=== PATIENT | female | born 1970 | race Caucasian/White ===

== ENCOUNTER → 2017-05-23 | Outpatient (CLI) | payer BC, OTHER ==
[~2017-05-23] MED LIST: ESOM40CA PO; LOVA20TA2 PO; MULT-658 PO; OMEG1CAP30 PO
[2017-05-23 09:19] LABS: MICROSCOPIC NOT IND
[2017-05-23 09:26] LABS: CULTURE INDICATED? NO
[2017-05-23 09:31] LABS: ANION GAP 6 mmol/L (5-15); BASOPHILS # (AUTO) 0.03 x10^3/uL (0-0.1); BASOPHILS % (AUTO) 1 % (0-1); CHLORIDE 105 mmol/L (98-107); EOSINOPHILS % (AUTO) 2 % (1-7); LYMPHOCYTES # (AUTO) 1.19 x10^3/uL (1-3.4); LYMPHOCYTES % (AUTO) 24 % (22-44); MD NO; MEAN CORPUSCULAR HEMOGLOBIN 30.5 pg (27.0-34.8); MEAN CORPUSCULAR HGB CONC 34.7 g/dL (32.4-35.8); MEAN PLATELET VOLUME 7.9 fL (7.4-10.4); MONOCYTES # (AUTO) 0.34 x10^3/uL (0.2-0.8); MONOCYTES % (AUTO) 7 % (2-9); NEUTROPHILS # (AUTO) 3.37 x10^3/uL (1.8-6.8); NEUTROPHILS % (AUTO) 67 % (42-75); PLATELET COUNT 198 x10^3/uL (130-400); RED BLOOD COUNT 4.98 x10^6/uL (3.82-5.3)
[2017-05-23 09:36] LABS: CREATININE 0.93 mg/dL (0.55-1.02)
== END | disposition home or self-care (01) ==
LOC: STAR 08:28
PROVIDERS: ATTEND Obstetrics & Gynecology
DX: Z01.818 Encounter for other preprocedural examination (principal); D25.9 Leiomyoma of uterus, unspecified
CPT/HCPCS: 36415; 80048; 81003; 84702; 85025

== ENCOUNTER 2017-05-29 05:40 | Day surgery (SDC) | payer BC, OTHER ==
[2017-05-23 08:45] VITALS: BP 124/83
[~2017-05-29] VITALS: Ht 167.6 cm; Wt 71.3 kg
[2017-05-29] MEDS ORDERED: ACETAMINOPHEN 500 MG TABLET ONE (06:15)
[2017-05-29] MEDS ORDERED: LIDOCAINE 1%, 2ML ONE (06:15)
[2017-05-29] MEDS ORDERED: GABAPENTIN 300 MG CAPSULE ONE (06:15)
[2017-05-29] MEDS ORDERED: LACTATED RINGERS 1,000 ML IV SCH (06:25)
[2017-05-29] MEDS ORDERED: ACETAMINOPHEN 500 MG TABLET PO ONE (06:30)
[2017-05-29] MEDS ORDERED: GABAPENTIN 300 MG CAPSULE PO SCH (06:30)
[2017-05-29] MEDS ORDERED: LIDOCAINE 1%, 2ML SQ PRN (06:30)
[2017-05-29] MEDS ORDERED: KETAMINE 10 MG/ML, 20ML ONE (07:06)
[2017-05-29] MEDS ORDERED: MIDAZOLAM 1 MG/ML, 2ML ONE (07:07)
[2017-05-29] MEDS ORDERED: LIDOCAINE GEL 2%, 5ML ONE (07:07)
[2017-05-29] MEDS ORDERED: FENTANYL PF 250 MCG/5ML ONE (07:07)
[2017-05-29] MEDS ORDERED: INDIGO CARMINE 0.8%, 5ML ONE (07:15)
[2017-05-29] MEDS ORDERED: EPINEPHRINE 1 MG/ML, 1ML ONE (07:16)
[2017-05-29] MEDS ORDERED: FLUORESCEIN SODIUM 500 MG/5 ML ONE (07:16)
[2017-05-29] MEDS ORDERED: SCOPOLAMINE PATCH, 1.5MG PATCH.TD72 TD ONE (07:18)
[2017-05-29] MEDS ORDERED: OXYcodone 5 MG/5 ML ORAL.SOL UDC PO PRN (08:00)
[2017-05-29] MEDS: BUPIVACAINE/PF 0.25% ONE ×2 (08:00→08:01)
[2017-05-29] MEDS ORDERED: HYDROmorphone 1 MG/ML, 1ML IV PRN (08:00)
[2017-05-29] MEDS ORDERED: MIDAZOLAM 1 MG/ML, 2ML IV PRN (08:00)
[2017-05-29] MEDS ORDERED: LABETALOL 5MG/ML, 20ML IV PRN (08:00)
[2017-05-29] MEDS ORDERED: MEPERIDINE/PF 25MG/0.5ML IVPush PRN (08:00)
[2017-05-29] MEDS ORDERED: ALBUTEROL SULFATE 2.5 MG/3 ML NPPB PRN (08:00)
[2017-05-29] MEDS ORDERED: hydrALAzine 20 MG/ML, 1ML IV PRN (08:00)
[2017-05-29] MEDS ORDERED: PROMETHAZINE 25 MG/ML, 1ML IV PRN (08:00)
[2017-05-29] MEDS ORDERED: ONDANSETRON 2MG/ML, 2ML IVPush PRN (08:00)
[2017-05-29] MEDS ORDERED: SUCCINYLCHOLINE 20 MG/ML, 10ML ONE (09:17)
[2017-05-29] MEDS ORDERED: ROCURONIUM 10 MG/ML,10ML ONE (09:17)
[2017-05-29] MEDS ORDERED: PROPOFOL 10 MG/ML, 20ML ONE (09:17)
[2017-05-29] MEDS ORDERED: DEXAMETHASONE 4 MG/ML, 1ML ONE (09:18)
[2017-05-29] MEDS ORDERED: ONDANSETRON 2MG/ML, 2ML ONE ×2 (09:18→10:55)
[2017-05-29] MEDS ORDERED: FENTANYL PF 100 MCG/2ML ONE (10:02)
[2017-05-29] MEDS ORDERED: OXYcodone 5 MG/5 ML ORAL.SOL UDC ONE (10:02)
[2017-05-29] MEDS: FENTANYL PF 100 MCG/2ML IV PRN ×2 (10:08→10:28)
[2017-05-29] MEDS ORDERED: OXYcodone/APAP 5/325MG TABLET ONE (14:23)
[2017-05-29] MEDS: OXYcodone/APAP 5/325MG TABLET PO PRN ×2 (14:29→18:25)
[2017-05-29] MEDS ORDERED: CEFAZOLIN 1,000 MG ONE (16:37)
[2017-05-29] MEDS ORDERED: GLYCOPYRROLATE 0.2MG/1ML, 5ML ONE (16:37)
[2017-05-29] MEDS ORDERED: NEOSTIGMINE 1 MG/ML, 10ML ONE (16:37)
== END 2017-05-29 18:40 | disposition home or self-care (01) ==
LOC: OUT 05:40
PROVIDERS: ATTEND Obstetrics & Gynecology
DX: D25.9 Leiomyoma of uterus, unspecified (principal); N83.8 Other noninflammatory disorders of ovary, fallopian tube and broad ligament; N92.0 Excessive and frequent menstruation with regular cycle; E78.5 Hyperlipidemia, unspecified; K21.9 Gastro-esophageal reflux disease without esophagitis; Z98.890 Other specified postprocedural states
CPT/HCPCS: 58552; 81025; 88307; J0171; J0330; J0690; J1100; J2250; J2405; J2704; J2710; J3010; J3490; J7120

== ENCOUNTER → 2017-07-09 | Outpatient (CLI) | payer OTHER | END | disposition home or self-care (01) | LOC: CFH 08:49 | PROVIDERS: ATTEND Obstetrics & Gynecology | DX: Z12.31 Encounter for screening mammogram for malignant neoplasm of breast (principal) | CPT/HCPCS: 77063; 77067 ==

== ENCOUNTER → 2017-07-09 | Outpatient (CLI) | payer OTHER ==
[2017-07-09 08:32] LABS: BASOPHILS # (AUTO) 0.01 x10^3/uL (0-0.1); BASOPHILS % (AUTO) 0 % (0-1); EOSINOPHILS % (AUTO) 2 % (1-7); LYMPHOCYTES # (AUTO) 1.24 x10^3/uL (1-3.4); LYMPHOCYTES % (AUTO) 29 % (22-44); MD NO; MEAN CORPUSCULAR HEMOGLOBIN 29.3 pg (27.0-34.8); MEAN CORPUSCULAR HGB CONC 34.5 g/dL (32.4-35.8); MEAN PLATELET VOLUME 7.4 fL (7.4-10.4); MONOCYTES # (AUTO) 0.26 x10^3/uL (0.2-0.8); MONOCYTES % (AUTO) 6 % (2-9); NEUTROPHILS % (AUTO) 63 % (42-75); PLATELET COUNT 223 x10^3/uL (130-400); RED BLOOD COUNT 4.77 x10^6/uL (3.82-5.3); RED CELL DISTRIBUTION WIDTH 13.4 % (9.6-15.2)
[2017-07-09 08:42] LABS: ALANINE AMINOTRANSFERASE 19 U/L (12-78); ANION GAP 9 mmol/L (5-15); CALCIUM 9.1 mg/dL (8.5-10.1); CHLORIDE 107 mmol/L (98-107); CREATININE 0.92 mg/dL (0.55-1.02); GAMMA GLUTAMYL TRANSPEPTIDASE 13 U/L (5-55)
[2017-07-09 08:46] LABS: ALKALINE PHOSPHATASE 88 U/L (45-117); BILIRUBIN, DIRECT 0.1 mg/dL (0.1-0.2); BILIRUBIN,TOTAL 0.4 mg/dL (0.2-1.0); CHOL/HDL RATIO 3.3; CHOLESTEROL, TOTAL 244 mg/dL (140-239); HDL CHOL % 30 % (28-40); HDL CHOLESTEROL (DIRECT) 74 mg/dL (40-60); LDL CHOLESTEROL,CALCULATED 155 mg/dL (54-169); LDL/HDL RATIO 2.1 (0.5-3.0); TOTAL PROTEIN 7.8 g/dL (6.4-8.2); TRIGLYCERIDES 74 mg/dL (50-200); VLDL CHOLESTEROL 15 mg/dL (0-25)
== END | disposition home or self-care (01) ==
LOC: LAB 08:14
PROVIDERS: ATTEND Emergency Medicine Emergency Medical Services
DX: E78.5 Hyperlipidemia, unspecified (principal); E34.9 Endocrine disorder, unspecified; E23.7 Disorder of pituitary gland, unspecified; R73.01 Impaired fasting glucose
CPT/HCPCS: 36415; 80053; 80061; 82248; 82670; 82977; 83615; 84100; 84144; 84305; 84403; 84550; 85025

== ENCOUNTER 2017-09-09 09:23 | Emergency (ER) | payer OTHER ==
[~2017-09-09] VITALS: Ht 167.6 cm; Wt 70.0 kg
[2017-09-09 09:29] VITALS: BP 134/87
[2017-09-09] MEDS ORDERED: LIDOCAINE-MPF 1%, 5ML ONE (09:37)
[2017-09-09] MEDS ORDERED: LIDOCAINE-MPF 1%, 5ML INFIL ONE (10:00)
== END 2017-09-09 10:40 | disposition home or self-care (01) ==
LOC: ED 10:34
DX: K61.1 Rectal abscess (principal); Z90.710 Acquired absence of both cervix and uterus
CPT/HCPCS: 46040; 99284

== ENCOUNTER → 2018-05-06 | Outpatient (CLI) | payer OTHER ==
[2018-05-06 07:47] LABS: BASOPHILS # (AUTO) 0.03 x10^3/uL (0-0.1); BASOPHILS % (AUTO) 1 % (0-1); EOSINOPHILS # (AUTO) 0.12 x10^3/uL (0-0.4); EOSINOPHILS % (AUTO) 3 % (1-7); LYMPHOCYTES # (AUTO) 1.14 x10^3/uL (1-3.4); LYMPHOCYTES % (AUTO) 23 % (22-44); MD NO; MEAN CORPUSCULAR HEMOGLOBIN 30.3 pg (27.0-34.8); MEAN CORPUSCULAR HGB CONC 34.4 g/dL (32.4-35.8); MEAN CORPUSCULAR VOLUME 88.2 fL (80-100); MEAN PLATELET VOLUME 7.7 fL (7.4-10.4); MONOCYTES # (AUTO) 0.33 x10^3/uL (0.2-0.8); MONOCYTES % (AUTO) 7 % (2-9); NEUTROPHILS # (AUTO) 3.24 x10^3/uL (1.8-6.8); NEUTROPHILS % (AUTO) 67 % (42-75); PLATELET COUNT 212 x10^3/uL (130-400); RED BLOOD COUNT 4.62 x10^6/uL (3.82-5.3); RED CELL DISTRIBUTION WIDTH 12.7 % (9.6-15.2)
[2018-05-06 07:58] LABS: ALANINE AMINOTRANSFERASE 20 U/L (12-78); ALBUMIN 3.7 g/dL (3.4-5.0); ANION GAP 7 mmol/L (5-15); CHLORIDE 108 mmol/L (98-107); CREATININE 0.83 mg/dL (0.55-1.02); GAMMA GLUTAMYL TRANSPEPTIDASE 16 U/L (5-55)
[2018-05-06 08:05] LABS: ALKALINE PHOSPHATASE 94 U/L (45-117); BILIRUBIN,TOTAL 0.3 mg/dL (0.2-1.0); CHOL/HDL RATIO 3.2; CHOLESTEROL, TOTAL 236 mg/dL (140-239); HDL CHOL % 31 % (28-40); HDL CHOLESTEROL (DIRECT) 74 mg/dL (40-60); LDL CHOLESTEROL,CALCULATED 148 mg/dL (54-169); TOTAL PROTEIN 7.3 g/dL (6.4-8.2); TRIGLYCERIDES 72 mg/dL (50-200); VLDL CHOLESTEROL 14 mg/dL (0-25)
== END | disposition home or self-care (01) ==
LOC: LAB 07:23
PROVIDERS: ATTEND Emergency Medicine Emergency Medical Services
DX: E78.5 Hyperlipidemia, unspecified (principal); R73.01 Impaired fasting glucose; E34.9 Endocrine disorder, unspecified; E23.7 Disorder of pituitary gland, unspecified
CPT/HCPCS: 36415; 80053; 80061; 82670; 82977; 83615; 84100; 84144; 84305; 84403; 84550; 85025

== ENCOUNTER 2018-11-30 08:42 | Outpatient (CLI) | payer OTHER | END 2018-11-30 23:59 | disposition home or self-care (01) | LOC: CFH 08:42 | PROVIDERS: ATTEND Obstetrics & Gynecology | DX: Z12.31 Encounter for screening mammogram for malignant neoplasm of breast (principal) | CPT/HCPCS: 77067 ==

== ENCOUNTER 2019-03-29 07:30 | Outpatient (CLI) | payer OTHER ==
[2019-03-29 08:15] LABS: BASOPHILS # (AUTO) 0.05 x10^3/uL (0-0.1); BASOPHILS % (AUTO) 1 % (0-1); EOSINOPHILS # (AUTO) 0.13 x10^3/uL (0-0.4); EOSINOPHILS % (AUTO) 3 % (1-7); LYMPHOCYTES % (AUTO) 24 % (22-44); MD NO; MEAN CORPUSCULAR HEMOGLOBIN 30.4 pg (27.0-34.8); MEAN CORPUSCULAR HGB CONC 34.4 g/dL (32.4-35.8); MEAN CORPUSCULAR VOLUME 88.3 fL (80-100); MEAN PLATELET VOLUME 7.8 fL (7.4-10.4); MONOCYTES # (AUTO) 0.27 x10^3/uL (0.2-0.8); MONOCYTES % (AUTO) 6 % (2-9); NEUTROPHILS # (AUTO) 3.38 x10^3/uL (1.8-6.8); NEUTROPHILS % (AUTO) 67 % (42-75); PLATELET COUNT 183 x10^3/uL (130-400); RED BLOOD COUNT 4.58 x10^6/uL (3.82-5.3); RED CELL DISTRIBUTION WIDTH 13.1 % (9.6-15.2)
[2019-03-29 08:24] LABS: MICROSCOPIC NOT IND
[2019-03-29 08:34] LABS: ALBUMIN 3.7 g/dL (3.4-5.0); ANION GAP 8 mmol/L (5-15); CALCIUM 9.1 mg/dL (8.5-10.1); CHLORIDE 108 mmol/L (98-107); GAMMA GLUTAMYL TRANSPEPTIDASE 16 U/L (5-55)
[2019-03-29 08:47] LABS: ALANINE AMINOTRANSFERASE 27 U/L (12-78); ALKALINE PHOSPHATASE 94 U/L (45-117); BILIRUBIN,TOTAL 0.3 mg/dL (0.2-1.0); C-REACTIVE PROTEIN, QUANT 0.46 mg/dL (0.02-0.49); CHOL/HDL RATIO 3.5; CHOLESTEROL, TOTAL 286 mg/dL (140-239); CREATININE 0.89 mg/dL (0.55-1.02); FREE T4 (FREE THYROXINE) 0.83 ng/dL (0.76-1.46); HDL CHOL % 29 % (28-40); HDL CHOLESTEROL (DIRECT) 82 mg/dL (40-60); LDL CHOLESTEROL,CALCULATED 183 mg/dL (54-169); LDL/HDL RATIO 2.2 (0.5-3.0); T4 (THYROXINE) 7.5 mcg/dL (4.8-13.9); TOTAL PROTEIN 7.4 g/dL (6.4-8.2); TRIGLYCERIDES 106 mg/dL (50-200); VLDL CHOLESTEROL 21 mg/dL (0-25)
[2019-03-29 12:07] LABS: HEMOGLOBIN A1C 4.7 % (4.2-6.3)
== END 2019-03-29 23:59 | disposition home or self-care (01) ==
LOC: LAB 07:30
PROVIDERS: ATTEND Emergency Medicine Emergency Medical Services
DX: E78.5 Hyperlipidemia, unspecified (principal); E72.11 Homocystinuria; E34.9 Endocrine disorder, unspecified; E23.7 Disorder of pituitary gland, unspecified; E03.9 Hypothyroidism, unspecified; E55.9 Vitamin D deficiency, unspecified; R73.01 Impaired fasting glucose; Z96.41 Presence of insulin pump (external) (internal)
CPT/HCPCS: 36415; 80053; 80061; 81003; 82306; 82533; 82627; 82670; 82977; 83002; 83036; 83090; 83525; 83615; 84100; 84144; 84305; 84403; 84436; 84439; 84443; 84481; 84550; 85025; 86140

== ENCOUNTER → 2020-01-14 | Outpatient (CLI) | payer OTHER | END | disposition home or self-care (01) | LOC: CFH 09:03 | PROVIDERS: ATTEND Obstetrics & Gynecology | DX: Z12.31 Encounter for screening mammogram for malignant neoplasm of breast (principal) | CPT/HCPCS: 77063; 77067 ==

== ENCOUNTER 2020-01-28 08:38 | Outpatient (CLI) | payer OTHER | END 2020-01-28 23:59 | disposition home or self-care (01) | LOC: CFH 08:38 | PROVIDERS: ATTEND Obstetrics & Gynecology | DX: R92.8 Other abnormal and inconclusive findings on diagnostic imaging of breast (principal); N63.23 Unspecified lump in the left breast, lower outer quadrant | CPT/HCPCS: 76642; 77065 ==

== ENCOUNTER → 2020-07-26 | Outpatient (CLI) | payer OTHER ==
[2020-07-26 08:00] LABS: BASOPHILS % (AUTO) 2 % (0-1); EOSINOPHILS % (AUTO) 2 % (1-7); LYMPHOCYTES % (AUTO) 23 % (22-44); MEAN CORPUSCULAR HEMOGLOBIN 29.7 pg (27.0-34.8); MEAN CORPUSCULAR HGB CONC 34.2 g/dL (32.4-35.8); MEAN PLATELET VOLUME 7.8 fL (7.4-10.4); MONOCYTES % (AUTO) 7 % (2-9); NEUTROPHILS % (AUTO) 67 % (42-75); PLATELET COUNT 203 x10^3/uL (130-400); RED BLOOD COUNT 4.72 x10^6/uL (3.82-5.3); RED CELL DISTRIBUTION WIDTH 13.4 % (9.6-15.2)
[2020-07-26 08:02] LABS: MD NO
[2020-07-26 08:11] LABS: ALANINE AMINOTRANSFERASE 30 U/L (12-78); ANION GAP 4 mmol/L (5-15); CALCIUM 9.3 mg/dL (8.5-10.1); CHLORIDE 107 mmol/L (98-107); CREATININE 0.85 mg/dL (0.55-1.02); GAMMA GLUTAMYL TRANSPEPTIDASE 18 U/L (5-55)
[2020-07-26 08:19] LABS: ALKALINE PHOSPHATASE 100 U/L (45-117); BILIRUBIN,TOTAL 0.4 mg/dL (0.2-1.0); CHOL/HDL RATIO 3.2; CHOLESTEROL, TOTAL 278 mg/dL (140-239); HDL CHOL % 32 % (28-40); HDL CHOLESTEROL (DIRECT) 88 mg/dL (40-60); LDL CHOLESTEROL,CALCULATED 169 mg/dL (54-169); LDL/HDL RATIO 1.9 (0.5-3.0); TOTAL PROTEIN 7.7 g/dL (6.4-8.2); TRIGLYCERIDES 107 mg/dL (50-200); VLDL CHOLESTEROL 21 mg/dL (0-25)
== END | disposition home or self-care (01) ==
LOC: LAB 07:40
PROVIDERS: ATTEND Emergency Medicine Emergency Medical Services
DX: R94.6 Abnormal results of thyroid function studies (principal); E03.9 Hypothyroidism, unspecified; E78.5 Hyperlipidemia, unspecified; E55.9 Vitamin D deficiency, unspecified; R73.01 Impaired fasting glucose; E23.7 Disorder of pituitary gland, unspecified; E34.9 Endocrine disorder, unspecified
CPT/HCPCS: 36415; 80053; 80061; 82306; 82670; 82977; 83615; 84100; 84144; 84305; 84403; 84443; 84481; 84550; 85025